=== PATIENT | male | born 1990 | race African-American/Black ===

== ENCOUNTER 2018-02-11 07:59 | Emergency (ER) | payer SELFPAY ==
[~2018-02-11] VITALS: Ht 177.8 cm; Wt 67.8 kg
[2018-02-11 08:01] VITALS: BP 109/72
[2018-02-11] MEDS ORDERED: DIPH,PERTUSS(ACELL),TET VAC/PF 0.5 ML IM-VACC ONE ×2 (09:53→10:00)
[2018-02-11] MEDS ORDERED: BACITRACIN ZINC OINT 500U/GM, 0.9 GM ONE (10:41)
== END 2018-02-11 12:17 | disposition home or self-care (01) ==
LOC: ED 11:45
DX: S90.812A Abrasion, left foot, initial encounter (principal); S90.811A Abrasion, right foot, initial encounter; S60.512A Abrasion of left hand, initial encounter; S60.511A Abrasion of right hand, initial encounter; L03.113 Cellulitis of right upper limb; L03.115 Cellulitis of right lower limb; L03.114 Cellulitis of left upper limb; L03.116 Cellulitis of left lower limb; X58.XXXA Exposure to other specified factors, initial encounter; Y93.89 Activity, other specified; Y92.89 Other specified places as the place of occurrence of the external cause; Y99.8 Other external cause status
CPT/HCPCS: 99283